=== PATIENT | female | born 1975 ===

== ENCOUNTER 2024-12-26 21:22 | Emergency (ER) | payer OTHER ==
[~2024-12-26] VITALS: Ht 165.1 cm; Wt 74.8 kg
[2024-12-26] MEDS ORDERED: LOSA50 PO (21:45)
[2024-12-26] MEDS ORDERED: Ondansetron HCl 2 MG / ML 2ML Vial IV ONE (22:00)
[2024-12-26] MEDS ORDERED: Ketorolac Tromethamine 30mg Vial IV ONE (22:00)
[2024-12-26 22:01] LABS: Source, Urine Clean Catch
[2024-12-26 22:06] LABS: Bilirubin, Urine Neg (Neg); Blood, Urine 4+ (Neg); Glucose Qualitative, Urine Neg (Neg); Ketones, Urine 3+ (Neg); Leukocyte Esterase, Urine Neg (Neg); Nitrite, Urine Neg (Neg); Protein, Urine Neg (Neg); Urobilinogen, Urine NORM (Normal)
[2024-12-26 22:06] LABS: BASOPHILS ABSOLUTE AUTO 0.04 K/mm3 (0.00-0.23); BASOPHILS PERCENT AUTO 1 % (0-2); EOSINOPHILS ABSOLUTE AUTO 0.18 K/mm3 (0.00-0.68); EOSINOPHILS PERCENT AUTO 3 % (0-6); Hematocrit 40.7 % (33.0-51.0); Hemoglobin 13.7 g/dL (11.5-16.0); IMMATURE GRAN ABSOLUTE AUTO 0.07 K/mm3 (0.00-0.10); IMMATURE GRAN PERCENT AUTO 1 % (0-1); LYMPHOCYTES ABSOLUTE AUTO 2.51 K/mm3 (0.84-5.20); LYMPHOCYTES PERCENT AUTO 35 % (21-46); MONOCYTES ABSOLUTE AUTO 0.75 K/mm3 (0.16-1.47); MONOCYTES PERCENT AUTO 10 % (4-13); Mean Corpuscular HGB 31.6 pg (26.0-34.0); Mean Corpuscular HGB Conc 33.7 g/dL (31.5-36.5); Mean Corpuscular Volume 94 fL (80-100); Mean Platelet Volume 9.5 fL (9.1-12.4); NEUTROPHILS ABSOLUTE AUTO 3.71 K/mm3 (1.96-9.15); NEUTROPHILS PERCENT AUTO 51 % (41-73); Platelet Count 276 K/mm3 (150-400); RDW Coefficient Variation 11.6 % (11.7-14.2); RDW Standard Deviation 39.8 fL (35.1-46.3); Red Blood Cell Count 4.34 M/mm3 (3.80-5.20); White Blood Cell Count 7.26 K/mm3 (4.00-11.30)
[2024-12-26 22:07] LABS: Appearance, Urine Clear (Clear); Color, Urine Yellow (P-Yellow)
[2024-12-26 22:21] LABS: Bacteria Rare /hpf; Red Blood Cells, Urine 25-50 /hpf (0-2); Squamous Epithelial Cells Few /hpf (Few); White Blood Cells, Urine Not Seen /hpf (0-5)
[2024-12-26 22:27] LABS: Albumin, Blood 3.9 g/dL (3.4-5.0); Bilirubin, Total 0.3 mg/dL (0.1-1.0); Bun/Creatinine Ratio 22.4 (12.0-20.0); Calcium, Blood 9.2 mg/dL (8.5-10.1); Creatinine, Blood 1.07 mg/dL (0.40-1.00); Globulin, Blood 3.9 g/dL (2.2-4.0); Potassium, Blood 3.7 mmol/L (3.5-5.5); Total Protein, Blood 7.8 g/dL (6.4-8.2)
[2024-12-26] MEDS ORDERED: IBU600 MG PO (23:04)
== END 2024-12-26 23:20 | disposition home or self-care (01) ==
LOC: ER 21:22
PROVIDERS: Student in an Organized Health Care Education/Training Program
DX: N20.0 Calculus of kidney (principal); I10 Essential (primary) hypertension; Z79.899 Other long term (current) drug therapy; Z88.8 Allergy status to other drugs, medicaments and biological substances
CPT/HCPCS: 74176; 80053; 81001; 85025; 96374; 96375; 99284-25; J1885; J2405

== ENCOUNTER 2025-11-15 17:16 | Emergency (ER) | payer OTHER ==
[~2025-11-15] VITALS: Ht 162.6 cm; Wt 75.0 kg
[~2025-11-15 17:16] MED LIST: IBU600 MG PO; LOSA50 PO
[2025-11-15] MEDS ORDERED: Ketorolac Tromethamine 15mg Vial IV ONE (17:40)
[2025-11-15] MEDS ORDERED: Ondansetron HCl 2 MG / ML 2ML Vial IV ONE (17:40)
[2025-11-15] MEDS ORDERED: NS 1,000 ML IV SCH (17:40)
[2025-11-15 17:59] LABS: Source, Urine Clean Catch
[2025-11-15 18:01] LABS: BASOPHILS ABSOLUTE AUTO 0.02 K/mm3 (0.00-0.23); BASOPHILS PERCENT AUTO 0 % (0-2); EOSINOPHILS ABSOLUTE AUTO 0.12 K/mm3 (0.00-0.68); EOSINOPHILS PERCENT AUTO 2 % (0-6); Hematocrit 41.5 % (33.0-51.0); Hemoglobin 14.2 g/dL (11.5-16.0); IMMATURE GRAN ABSOLUTE AUTO 0.02 K/mm3 (0.00-0.10); IMMATURE GRAN PERCENT AUTO 0 % (0-1); LYMPHOCYTES ABSOLUTE AUTO 1.25 K/mm3 (0.84-5.20); LYMPHOCYTES PERCENT AUTO 18 % (21-46); MONOCYTES ABSOLUTE AUTO 0.50 K/mm3 (0.16-1.47); MONOCYTES PERCENT AUTO 7 % (4-13); Mean Corpuscular HGB Conc 34.2 g/dL (31.5-36.5); Mean Corpuscular Volume 91 fL (80-100); NEUTROPHILS ABSOLUTE AUTO 4.88 K/mm3 (1.96-9.15); NEUTROPHILS PERCENT AUTO 72 % (41-73); NRBC ABSOLUTE 0.00 K/mm3 (0.00-0.02); NRBC Auto 0.0 /100 WBC (0.0-0.2); Platelet Count 261 K/mm3 (150-400); RDW Coefficient Variation 12.1 % (11.7-14.2); RDW Standard Deviation 40.2 fL (35.1-46.3)
[2025-11-15 18:06] LABS: Bilirubin, Urine Neg (Neg); Glucose Qualitative, Urine Neg (Neg); Ketones, Urine 2+ (Neg); Leukocyte Esterase, Urine Neg (Neg); Protein, Urine Neg (Neg); Specific Gravity, Urine 1.020 (1.003-1.022); Urobilinogen, Urine NORM (Normal)
[2025-11-15 18:26] LABS: Color, Urine Pale Yellow (P-Yellow)
[2025-11-15 18:27] LABS: White Blood Cells, Urine 0-2 /hpf (0-5)
[2025-11-15 18:52] LABS: Alanine Aminotransfer (ALT/SGP 48.0 U/L (12-78); Albumin, Blood 4.3 g/dL (3.4-5.0); Albumin/Globulin Ratio 1.2 (0.8-1.8); Anion Gap 11.0 mmol/L (3-11); Aspartate Aminotrans (AST/SGOT 30.0 U/L (12-37); Bilirubin, Total 0.4 mg/dL (0.1-1.0); Blood Urea Nitrogen 17.0 mg/dL (8-24); CO2, Blood 23.0 mmol/L (21-32); Calcium, Blood 9.7 mg/dL (8.5-10.1); Chloride, Blood 105.0 mmol/L (98-108); Creatinine, Blood 0.79 mg/dL (0.40-1.00); Globulin, Blood 3.5 g/dL (2.2-4.0); Glucose, Blood 111.0 mg/dL (70-99); Potassium, Blood 4.2 mmol/L (3.5-5.5); Sodium, Blood 135.0 mmol/L (136-145); Total Protein, Blood 7.8 g/dL (6.4-8.2)
[2025-11-15] MEDS ORDERED: RX Prepack 2 Tabs Ondansetron ODT 4MG UD ONE (19:55)
[2025-11-15] MEDS ORDERED: Ondansetron 4 MG SoluTab BC ONE (19:55)
[2025-11-15] MEDS ORDERED: RX Prepack 6 Tabs Oxycodone 5mg UD ONE (19:55)
[2025-11-15] MEDS ORDERED: ONDA4ODT MM (19:56)
[2025-11-15] MEDS ORDERED: OXAYDO5 M1 PO (19:56)
[2025-11-15] MEDS ORDERED: TAMS.4ER PO (20:48)
== END 2025-11-15 20:48 | disposition home or self-care (01) ==
LOC: ER 17:16
PROVIDERS: Student in an Organized Health Care Education/Training Program
DX: N13.2 Hydronephrosis with renal and ureteral calculous obstruction (principal); I10 Essential (primary) hypertension; Z79.899 Other long term (current) drug therapy; Z88.8 Allergy status to other drugs, medicaments and biological substances
CPT/HCPCS: 74177; 80053; 81001; 83690; 85025; 96361; 96374-59; 96375; 99284-25; A9270; J1885; J2405; J7030; Q9967

== ENCOUNTER → 2025-11-17 | Outpatient (CLI) | payer OTHER ==
[~2025-11-17] MED LIST changes: +ONDA4ODT MM; +OXAYDO5 M1 PO; +TAMS.4ER PO
[2025-11-25 14:04] LABS: CALCIUM, URINE - PER 24H 194 mg/d (100-250); CALCIUM, URINE - PER VOLUME 12.1 mg/dL; CHLORIDE, URINE - PER 24H 198 mmol/d (140-250); CHLORIDE, URINE - PER VOLUME 124 mmol/L; CITRIC ACID, URINE - PER 24H 851 mg/d (320-1240); CITRIC ACID,URINE - PER VOLUME 532 mg/L; CREATININE, URINE - PER 24H 1584 mg/d (700-1600); CREATININE, URINE - PER VOLUME 99 mg/dL; HOURS COLLECTED 24 hr; MAGNESIUM, URINE - PER VOLUME 8.0 mg/dL; MAGNESIUM, URINE PER 24H 128 mg/d (12-199); OXALATE, URINE - PER 24H 46 mg/d (13-40); OXALATE, URINE - PER VOLUME 29 mg/L; PHOSPHORUS, URINE - PER 24H 880 mg/d (400-1300); PHOSPHORUS, URINE - PER VOLUME 55 mg/dL; POTASSIUM, URINE - PER 24H 64 mmol/d (25-125); POTASSIUM, URINE - PER VOLUME 40 mmol/L; SODIUM, URINE - PER 24H 192 mmol/d (51-286); SODIUM, URINE - PER VOLUME 120 mmol/L; SULFATE, URINE - PER 24H 16 mmol/d (6-30); SULFATE, URINE - PER VOLUME 10 mmol/L; URIC ACID, URINE - PER 24H 706 mg/d (250-750); URIC ACID, URINE - PER VOLUME 44.1 mg/dL; URINE SUPERSATURATION INTERP Abnormal; URINE SUPERSATURATION, CAHPO4 0.83; URINE SUPERSATURATION, CAOX 7.43; URINE SUPERSATURATION, UA CALC 1.21
== END ==
LOC: LAB 18:30 → LAB SHORT 18:30
PROVIDERS: Urology
DX: N20.1 Calculus of ureter (principal)
CPT/HCPCS: 81003; 82131; 82140; 82340; 82436; 82507; 82570; 83735; 83935; 83945; 84105; 84133; 84300; 84392; 84560